=== PATIENT | female | born 1945 | race Asian ===

== ENCOUNTER 2019-12-12 01:01 | Inpatient (IN) | payer BC, OTHER ==
[~2019-12-12] VITALS: Ht 154.9 cm; Wt 63.0 kg
[~2019-12-12 01:01] MED LIST: ASPIR 8181 MG PO; ATENOLOL25 MG PO; HYDROCHLOROTH12.5 M2 PO; TAMOXIFEN CITRA20 MG
[2019-12-12 01:04] VITALS: Ht 154.9 cm; Wt 63.0 kg
[2019-12-12 02:26] LABS: BASOPHIL % 0.3 % (0-2); PLATELET COUNT 239 x10^3mcL (130-400); RED CELL DISTRIBUTION WIDTH 12.4 % (11.5-14.5)
[2019-12-12 02:41] LABS: POTASSIUM SERUM 3.3 mmol/L (3.5-5.1); SODIUM SERUM 141 mmol/L (136-145)
[2019-12-12 02:42] LABS: CALCIUM 8.5 mg/dL (8.5-10.1); CHLORIDE SERUM 106 mmol/L (98-107); CREATININE SERUM 0.8 mg/dL (0.6-1.0); GLUCOSE SERUM 202 mg/dL (74-106)
[2019-12-12] MEDS ORDERED: TOPROL XL25 MG PO (03:24)
[2019-12-12 03:33] LABS: microscopic required? YES; urine erythrocyte NEGATIVE (NEGATIVE)
[2019-12-12 04:45] LABS: PHOSPHOROUS 3.2 mg/dL (2.5-4.9)
[2019-12-12 04:48] VITALS: BP 143/65
[2019-12-12 04:48] LABS: CHOLESTEROL/HDL RATIO 4.7
[2019-12-12 04:53] LABS: T3 TOTAL 0.98 ng/mL
[2019-12-12 05:15] LABS: FREE T4 1.11 ng/dL (0.76-1.46); FREE THYROXINE INDEX 2.6 ug/dL (1.4-4.5); T4(THYROXINE) 7.6 ug/dL (4.7-13.3)
[2019-12-12 05:45] LABS: AMPHETAMINE QUAL UR NONE DETECTED (See below)
[2019-12-12 08:37] VITALS: BP 141/62
[2019-12-12 12:25] VITALS: BP 132/63
[2019-12-12] MEDS ORDERED: METOPROLOL TART25 M1 PO (16:05)
[2019-12-12] MEDS ORDERED: XARELTO20 M1 PO (16:05)
[2019-12-12] MEDS ORDERED: PRILOSEC OTC20 M1 PO (16:06)
[2019-12-12 17:20] VITALS: BP 160/68
== END 2019-12-12 17:45 | disposition home or self-care (01) | DRG 309 ==
LOC: ED 01:01 → DU 03:39
PROVIDERS: Emergency Medicine; ADMIT Student in an Organized Health Care Education/Training Program
DX: I48.91 Unspecified atrial fibrillation (principal); N39.0 Urinary tract infection, site not specified; I10 Essential (primary) hypertension; E87.6 Hypokalemia; E86.0 Dehydration; Z79.899 Other long term (current) drug therapy; Z88.0 Allergy status to penicillin; Z79.82 Long term (current) use of aspirin; Z90.710 Acquired absence of both cervix and uterus; Z80.3 Family history of malignant neoplasm of breast
CPT/HCPCS: 83880; 84439; G0378; J1644; J3490; J7030; Q0092